=== PATIENT | female | born 1995 | race Caucasian/White ===

== ENCOUNTER 2017-12-12 13:30 | Emergency (ER) | payer SELFPAY ==
[2017-12-12 15:25] LABS: ADD MAN DIFF? NO
[2017-12-12 15:55] LABS: BASOPHILS % 0.2 % (0.0-2.0); EOSINOPHILS % 0.6 % (0.0-7.0); HEMATOCRIT 34.6 % (37.0-47.0); HEMOGLOBIN 12.2 g/dl (12.0-16.0); LYMPHOCYTES % 35.6 % (15.0-51.0); MEAN CORPUSCULAR HEMOGLOBIN 31.5 pg (29.0-33.0); MEAN CORPUSCULAR HGB CONC 35.3 g/dl (32.0-37.0); MEAN CORPUSCULAR VOLUME 89.4 fl (82.0-101.0); MEAN PLATELET VOLUME 10.5 fl (7.4-10.4); MONOCYTES % 5.9 % (0.0-11.0); NEUTROPHILS % 57.5 % (39.0-77.0); PLATELET COUNT 242 10^3/UL (140-415); RED BLOOD COUNT 3.87 10^6/ul (4.20-5.40); RED CELL DISTRIBUTION WIDTH 13.5 % (11.5-14.5)
[2017-12-12 15:55] LABS: WHITE BLOOD COUNT 8.7 10^3/ul (4.8-10.8)
[2017-12-12 15:56] LABS: EOSINOPHILS # 0.1 10^3/ul (0.0-0.5); LYMPHOCYTES # 3.1 10^3/ul (0.8-2.9); MONOCYTE # 0.5 10^3/ul (0.3-0.9)
[2017-12-12 16:06] LABS: ADD UMIC YES; UR ASCORBIC ACID NEGATIVE (NEGATIVE); UR BILIRUBIN (Dip) NEGATIVE (NEGATIVE); UR BLOOD (Dip) NEGATIVE (NEGATIVE); UR CLARITY CLOUDY (CLEAR); UR COLOR YELLOW (YELLOW); UR GLUCOSE (Dip) NEGATIVE (NEGATIVE); UR KETONES (Dip) 1+ mg/dL (NEGATIVE); UR LEUKOCYTE ESTERASE (Dip) 3+ Leu/ul (NEGATIVE); UR MUCUS MANY /HPF (NONE SEEN); UR NITRITE (Dip) NEGATIVE (NEGATIVE); UR RBC 2 /HPF (0-5); UR SPECIFIC GRAVITY (Dip) 1.024 (1.003-1.030); UR SQUAMOUS EPITHELIAL CELL MODERATE /HPF (FEW); UR TOTAL PROTEIN (Dip) NEGATIVE (NEGATIVE); UR UROBILINOGEN (Dip) 1+ mg/dL (NEGATIVE); UR WBC 5 /HPF (0-5)
== END 2017-12-12 17:21 | disposition home or self-care (01) ==
LOC: FTE 13:30
DX: O20.9 Hemorrhage in early pregnancy, unspecified (principal); R10.2 Pelvic and perineal pain; Z3A.13 13 weeks gestation of pregnancy
CPT/HCPCS: 76801; 81001; 84702; 85025; 86900; 86901; 99284-25

== ENCOUNTER 2018-06-14 09:40 | Inpatient (IN) | payer MEDICAID ==
[2018-06-14] MEDS ORDERED: CARBOPROST 250 MCG INJ IM ×3 (10:00→19:30)
[2018-06-14] MEDS ORDERED: MISOPROSTOL 200 MCG TAB PR ×3 (10:00→19:30)
[2018-06-14] MEDS ORDERED: OXYTOCIN 30 UNITS/LR 500 ML IV ×5 (10:00→19:30)
[2018-06-14] MEDS: LACTATED RINGER'S 1,000 ML IV ×3 (10:17→13:13)
[2018-06-14 10:28] LABS: ADD MAN DIFF? NO
[2018-06-14 10:31] LABS: WHITE BLOOD COUNT 6.2 10^3/ul (4.8-10.8)
[2018-06-14 10:31] LABS: BASOPHILS % 0.2 % (0.0-2.0); EOSINOPHILS % 0.3 % (0.0-7.0); HEMATOCRIT 33.2 % (37.0-47.0); HEMOGLOBIN 11.1 g/dl (12.0-16.0); LYMPHOCYTES # 1.5 10^3/ul (0.8-2.9); LYMPHOCYTES % 23.4 % (15.0-51.0); MEAN CORPUSCULAR HEMOGLOBIN 31.4 pg (29.0-33.0); MEAN CORPUSCULAR HGB CONC 33.4 g/dl (32.0-37.0); MEAN CORPUSCULAR VOLUME 94.1 fl (82.0-101.0); MONOCYTE # 0.4 10^3/ul (0.3-0.9); MONOCYTES % 6.3 % (0.0-11.0); NEUTROPHIL # 4.2 10^3/ul (1.6-7.5); NEUTROPHILS % 68.5 % (39.0-77.0); PLATELET COUNT 171 10^3/UL (140-415); RED BLOOD COUNT 3.53 10^6/ul (4.20-5.40)
[2018-06-14 10:54] LABS: INR 0.82; PROTIME 11.4 Sec (11.9-14.9); PT RATIO 0.9
[2018-06-14 10:55] LABS: PARTIAL THROMBOPLASTIN TIME 28.3 Sec (23.0-35.0)
[2018-06-14 11:25] LABS: HEPATITIS B SURFACE ANTIGEN NEGATIVE (NEGATIVE)
[2018-06-14] MEDS: CITRIC ACID/NA CITRATE 30 ML CUP PO (12:53)
[2018-06-14] MEDS ORDERED: morphine SULFATE/PF (10 MG/10 ML) INJ (13:43)
[2018-06-14] MEDS ORDERED: KETOROLAC 30 MG INJ (13:44)
[2018-06-14] MEDS ORDERED: ONDANSETRON 4 MG INJ (13:44)
[2018-06-14] MEDS ORDERED: METOCLOPRAMIDE 10 MG INJ (13:44)
[2018-06-14] MEDS: CEFAZOLIN 2 GM/50 ML (PMX) 50 ML IVPB (14:30)
[2018-06-14] MEDS ORDERED: EPHEDrine SULFATE 50 MG/5 ML SYG (14:35)
[2018-06-14] MEDS ORDERED: morphine (1 MG/ML) 10ML SYRINGE IV ×3 (15:00)
[2018-06-14] MEDS ORDERED: NALOXONE (0.4 MG/ML) INJ IV (15:00)
[2018-06-14] MEDS ORDERED: DIPHENHYDRAMINE 50 MG INJ IV (15:00)
[2018-06-14] MEDS ORDERED: morphine 2 MG INJ IV ×3 (15:00)
[2018-06-14] MEDS: OXYTOCIN 30 UNITS/LR 500 ML IV ×3 (15:11→21:47)
[2018-06-14] MEDS: METHYLERGONOVINE 0.2 MG INJ IM (15:31)
[2018-06-14 15:39] LABS: RAPID PLASMA REAGIN NONREACTIVE (NR)
[2018-06-14] MEDS: ONDANSETRON 4 MG INJ IV (16:56)
[2018-06-14] MEDS ORDERED: OXYCODONE/ACETAMINOPHEN (5/325) TAB PO ×4 (19:30)
[2018-06-14] MEDS ORDERED: METHYLERGONOVINE 0.2 MG INJ IM ×2 (19:30)
[2018-06-14] MEDS ORDERED: CEFAZOLIN 1 GM/50 ML (PMX) 50 ML IVPB (19:30)
[2018-06-14] MEDS ORDERED: LANOLIN 7 GM TUBE TOP (19:30)
[2018-06-14] MEDS ORDERED: HYDROCODONE/APAP (5/325) TAB PO ×4 (19:30)
[2018-06-14] MEDS: CEFAZOLIN 1 GM/50 ML (PMX) 50 ML IVPB (21:18)
[2018-06-15] MEDS: OXYTOCIN 30 UNITS/LR 500 ML IV ×7 (01:46→23:10)
[2018-06-15] MEDS: KETOROLAC 30 MG INJ IV (05:07)
[2018-06-15] MEDS: LANOLIN 7 GM TUBE TOP (05:08)
[2018-06-15 07:27] LABS: ADD MAN DIFF? NO
[2018-06-15 07:42] LABS: BASOPHILS % 0.3 % (0.0-2.0); EOSINOPHILS % 0.1 % (0.0-7.0); HEMATOCRIT 30.7 % (37.0-47.0); HEMOGLOBIN 10.1 g/dl (12.0-16.0); LYMPHOCYTES # 1.3 10^3/ul (0.8-2.9); LYMPHOCYTES % 17.9 % (15.0-51.0); MEAN CORPUSCULAR HEMOGLOBIN 31.7 pg (29.0-33.0); MEAN CORPUSCULAR HGB CONC 32.9 g/dl (32.0-37.0); MEAN CORPUSCULAR VOLUME 96.2 fl (82.0-101.0); MEAN PLATELET VOLUME 10.8 fl (7.4-10.4); MONOCYTE # 0.4 10^3/ul (0.3-0.9); NEUTROPHIL # 5.3 10^3/ul (1.6-7.5); NEUTROPHILS % 75.3 % (39.0-77.0); PLATELET COUNT 148 10^3/UL (140-415); RED BLOOD COUNT 3.19 10^6/ul (4.20-5.40); RED CELL DISTRIBUTION WIDTH 15.2 % (11.5-14.5)
[2018-06-15] MEDS: SENNA/DOCUSATE NA (8.6MG/50MG) TAB PO ×2 (08:21→20:53)
[2018-06-15] MEDS ORDERED: SENNA/DOCUSATE NA (8.6MG/50MG) TAB PO (09:00)
[2018-06-15] MEDS: IBUPROFEN 600 MG TAB PO ×2 (17:15→23:58)
[2018-06-15] MEDS ORDERED: IBUPROFEN 600 MG TAB PO (18:00)
[2018-06-16] MEDS: OXYTOCIN 30 UNITS/LR 500 ML IV ×2 (03:10→07:10)
[2018-06-16] MEDS: IBUPROFEN 600 MG TAB PO ×3 (05:55→18:03)
[2018-06-16] MEDS: SENNA/DOCUSATE NA (8.6MG/50MG) TAB PO ×2 (09:38→22:11)
[2018-06-16] MEDS: NA PHOSPHATE/BIPHOS 133 ML ENEMA PR (15:43)
[2018-06-17] MEDS: IBUPROFEN 600 MG TAB PO ×3 (05:57→14:23)
[2018-06-17] MEDS: SENNA/DOCUSATE NA (8.6MG/50MG) TAB PO (09:46)
[2018-06-17] MEDS: DIPHTH/TET/ACEL PERTUSS (ADULT) 0.5 ML VIAL IM* (09:47)
== END 2018-06-17 15:20 | disposition home or self-care (01) | DRG 788 ==
LOC: L-D 09:40 → PP1 18:36
PROVIDERS: Obstetrics & Gynecology
PROC: 10D00Z1 Extraction of Products of Conception, Low, Open Approach (ICD-10-PCS; principal; 2018-06-14 12:30)
DX: O34.219 Maternal care for unspecified type scar from previous cesarean delivery (principal); Z3A.39 39 weeks gestation of pregnancy; Z37.0 Single live birth
CPT/HCPCS: 85025; 85610; 85730; 86592; 86850; 86900; 86901; 87340; 90686; 90715; 99464